=== PATIENT | male | born 1980 | race Caucasian/White ===

== ENCOUNTER 2023-06-17 18:03 | Emergency (ER) | payer MEDICAID, SELFPAY ==
[2023-06-17 18:16] VITALS: BP 226/151; PULSE 104; RESP 18; O2SAT 95; BMI 57.4
--- NOTE | 2023-06-17 18:24 | W.ED.EPISTAX ---
HPI - Epistaxis General: Chief complaint: Epistaxis Stated complaint: nosebleed Time Seen by Provider: 06/17/23 18:24 History of Present Illness: 42-year-old male presents emergency department with complaints of elevated blood pressure and epistaxis. He states that he has had longstanding elevated blood pressure that has been untreated for many years and today it became much worse causing him to have a uncontrolled nosebleed. He states he also has a headache that is a throbbing headache that is a 7 out of 10. He denies neck pain or nuchal rigidity or recent trauma. Associated symptoms: Reports headache(s) Review of Systems General: Reports: 10 or more systems reviewed and unremarkable except in HPI and below ENMT: Reports: epistaxis Neuro: Reports: headache(s) Physical Exam Narrative: EXAM NARRATIVE: Constitutional: the patient appears well nourished and with normal development. Vital signs reviewed as documented. HENMT: Normocephalic, atraumatic. Extermal ears with normal appearance without drainage. Nose with epistaxis left nare, normal appearance. Mucus membranes moist. Neck is supple, No jugular venous distension, trachea is midline, no appreciable carotid bruits. No lymphadenopathy. No meningeal signs. Flexion, extension and lateral rotation is without pain. Eyes: Pupils are equal, round, reactive to light and accommodation. No scleral icterus. Extra-ocular movement are intact. Thorax is symmetrical and with equal rise and fall with respirations. Resp: Lungs are clear to auscultation. No wheezes, rales, crackles or ronchi at present. Cardio: Regular rate and rhythm. Positive S1, S2. No appreciable murmurs, rubs or gallops. GI: Abdominal exam reveals normal bowel sounds to all quadrants. No organomegaly. No obvious palpable masses noted. No hepatomegally appreciated. Soft, nontender to palpation. Extremity: Extremities are with 1+ bilateral lower extremity pitting edema and both femoral and pedal pulses are 2+ and equal bilaterally. Moves all extremities well, sensation in all extremities. Neuro: Alert and oriented x4, person, place, time and situation. Cranial nerves II through XII are grossly intact, there is no focal neurological deficits that I can appreciate at present. Motor strength in the upper and lower extremities are equal and bilateral 5/5. Psych: Cooperative, calm, normal thought process, appropriate judgment. Skin: No lesions, rashes. No gross abnormalities noted. Back: Symmetrical, no obvious deformity, No CVA tenderness Course Vital Signs: Vital signs: Vital Signs Pulse Rate 108 H 06/17/23 19:11 Respiratory Rate 20 H 06/17/23 19:06 Blood Pressure 235/147 06/17/23 19:11 Pulse Oximetry 91 06/17/23 19:11 Oxygen Delivery Me thod Room Air 06/17/23 18:16 MDM - Epistaxis Medical Decision Making Physical exam completed and documented, I will obtain a CBC, CMP, EKG chest x-ray as well as cholesterol and hemoglobin A1c as the patient states he has had significantly elevated blood glucose levels and diabetes runs in his family. He states he has had untreated hypertension for greater than 10 years as he does not have a primary care provider. Lab Data I reviewed the patient's lab results. 06/17/23 19:34 06/17/23 19:34 Radiology Impressions Chest X-Ray 06/17/23 19:19 IMPRESSION: 1. No acute pulmonary findings. 2. Cardiomegaly. Laboratory Results WBC 8.82 10^3/uL (3.29-11.43) 06/17/23 19:34 RBC 5.84 10^6/uL (3.85-5.65) H 06/17/23 19:34 Hgb 15.80 g/dL (11.27-16.99) 06/17/23 19:34 Hct 47.3 % (37-53) 06/17/23 19:34 MCV 81.0 fl (82-101) L 06/17/23 19:34 MCH 27.1 pg (27-33) 06/17/23 19:34 MCHC 33.4 g/dL (30-55) 06/17/23 19:34 RDW 13.7 % (12.1-15.1) 06/17/23 19:34 Plt Count 238 10^3/cmm (157-399) 06/17/23 19:34 MPV 9.1 fL (7.4-10.4) 06/17/23 19:34 Neut % (Auto) 61.7 % 06/17/23 19:34 Lymph % (Auto) 28.0 % 06/17/23 19:34 [place] % (Auto) 6.9 % 06/17/23 19:34 Eos % (Auto) 1.7 % 06/17/23 19:34 Baso % (Auto) 1.1 % 06/17/23 19:34 Neut # (Auto) 5.44 10^3/uL (1.8-7.7) 06/17/23 19:34 Lymph # (Auto) 2.5 10^3/uL (0.8-4.8) 06/17/23 19:34 [place] # (Auto) 0.6 10^3/uL (0.2-0.9) 06/17/23 19:34 Eos # (Auto) 0.2 10^3/uL (0.0-0.8) 06/17/23 19:34 Baso # (Auto) 0.1 10^3/uL (0.0-0.1) 06/17/23 19:34 Nucleated RBC % (auto) 0 % 06/17/23 19:34 Nucleated RBCs # 0.0 /100WBC 06/17/23 19:34 Sodium 140 mmol/L (136-145) 06/17/23 19:34 Potassium 3.2 mmol/L (3.5-5.1) L 06/17/23 19:34 Chloride 103 mmol/L (98-107) 06/17/23 19:34 Carbon Dioxide 26 mmol/L (22-29) 06/17/23 19:34 Anion Gap 14.2 (5-19) 06/17/23 19:34 BUN 16 mg/dL (6-20) 06/17/23 19:34 Creatinine 1.0 mg/dL (0.7-1.2) 06/17/23 19:34 GFR Calculation 82.3 mL/min (90-130) L 06/17/23 19:34 Glucose 213 mg/dL (65-115) H 06/17/23 19:34 Estimat Average Glucose 163 06/17/23 19:34 Calculated Osmolality 298 mOsm/kg (285-295) H 06/17/23 19:34 Calcium 9.1 mg/dL (8.5-10.5) 06/17/23 19:34 Total Bilirubin 0.2 mg/dL (0.15-1.2) 06/17/23 19:34 AST 24 U/L (0-40) 12/17/23 19:34 ALT 35 U/L (0-41) 06/17/23 19:34 Alkaline Phosphatase 122 U/L (40-130) 06/17/23 19:34 Total Protein 6.7 g/dL (6.6-8.7) 06/17/23 19:34 Albumin 3.8 g/dL (3.5-5.2) 06/17/23 19:34 Globulin 2.9 g/dL (1.3-4.6) 06/17/23 19:34 Triglycerides 204 mg/dL (0-150) H 06/17/23 19:34 Cholesterol 164 mg/dL (0-200) 06/17/23 19:34 LDL Cholesterol Direct 108 mg/dL (0-100) H 06/17/23 19:34 HDL Cholesterol 32 mg/dL (60-100) L 06/17/23 19:34 TSH 1.71 uIU/mL (0.27-4.20) 06/17/23 19:34 All radiology interpretation(s) finalized by discharge Discharge Plan Discharge Patient Disposition: Home Clinical Impression: Epistaxis Hypertension Qualifiers: Hypertension type: primary hypertension Qualified Code(s): I10 - Essential (primary) hypertension Condition: Stable Prescriptions: New Norvasc 10 mg tablet 10 mg PO DAILY Qty: 90 1RF clonidine HCl 0.1 mg tablet 0.1 mg PO DAILY Qty: 30 1RF atorvastatin 20 mg tablet 20 mg PO QPM Qty: 90 0RF benazepril-hydrochlorothiazide 20-25 mg tablet 1 tab PO DAILY Qty: 90 1RF Discharge Orders: Discharge ED (Routine); Ordered 06/17/23 Ordered By: Pineda Servin Discharge Diet: Low Salt Discharge Activity: Resume usual activity Patient Instructions: Opioid Safety, Pain Management Activity Restrictions/Additional Instructions: Activity Restrictions/Additional Instructions: Thank you for choosing [facility] for your healthcare needs today. Please realize that you were seen in the Emergency Department and that we are providing you with an emergency medical screening exam and this may not be a complete and all inclusive of all the testing and or medical work-up that you may need to determine your ailment or severity of your illness. It is very important that you follow-up as instructed with your Primary care provider or Specialist for additional evaluation and to discuss your medical treatment plan. You may return to the Emergency Department should you have concerns or if your condition changes or worsens in any way. Coding Level of Care Code ED [employer] Refinisher for Veronica Tavarez
[2023-06-17] MEDS: hyDRALAzine 20 mg/mL INJ 1 mL 10 MG IVP (18:41)
[2023-06-17 19:04] VITALS: BP 219/140
[2023-06-17] MEDS: cloNIDine 0.1 mg Tablet 0.2 MG PO (19:04)
[2023-06-17] MEDS: oxymetazoline 0.05% Nasal Spray 15 mL 2 SPRAY NOSTRIL-B (19:04)
[2023-06-17 19:06] VITALS: BP 219/140; PULSE 109; RESP 20; O2SAT 91
[2023-06-17 19:11] VITALS: BP 235/147; PULSE 108; O2SAT 91
--- NOTE | 2023-06-17 19:19 | ECG_ITS ---
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 Measurements Intervals Bell Rate: 90 P: 48 DE: 133 QRS: -14 QRSD: 101 T: 93 QT: 381 QTc: 467 Interpretive Statements SINUS RHYTHM WITH MARKED SINUS ARRHYTHMIA POSSIBLE LEFT ATRIAL ENLARGEMENT [-0.1mV P-WAVE IN V1/V2] NONSPECIFIC T-WAVE ABNORMALITY No previous ECG available for comparison Electronically Signed On 06-18-2023 15:52:13 [employer]OLDER HELPER by Sowmya Mayers M.D. [id number]
--- NOTE | 2023-06-17 19:19 | XRR_ITS ---
PROCEDURE INFORMATION: Exam: XR Chest Exam date and time: 06/17/2023 7:23 PM Age: 42 years old Clinical indication: Chest pressure; Patient HX: Chest pain; HTN; Nosebleed TECHNIQUE: Imaging protocol: Radiologic exam of the chest. Views: 2 views. COMPARISON: No relevant prior studies available. FINDINGS: Lungs: Unremarkable. No consolidation. Pleural spaces: Unremarkable. No pleural effusion. No pneumothorax. Heart/Mediastinum: Cardiomegaly. Bones/joints: Unremarkable. XR/XR chest 2V* [id number] IMPRESSION: 1. No acute pulmonary findings. 2. Cardiomegaly.
[2023-06-17 19:44] LABS: Basophils # 0.1 10^3/uL (0.0-0.1); Basophils % 1.1 %; Eosinophils # 0.2 10^3/uL (0.0-0.8); Eosinophils % 1.7 %; Hematocrit 47.3 % (37-53); Lymphocytes # 2.5 10^3/uL (0.8-4.8); Mean Corpuscular HGB Conc 33.4 g/dL (30-55); Mean Corpuscular Hemoglobin 27.1 pg (27-33); Mean Platelet Volume 9.1 fL (7.4-10.4); Monocytes # 0.6 10^3/uL (0.2-0.9); Monocytes % 6.9 %; Neutrophils # 5.44 10^3/uL (1.8-7.7); Neutrophils % 61.7 %; Nucleated Red Blood Cells % 0 %; Platelet Count 238 10^3/cmm (157-399); Red Blood Count 5.84 10^6/uL (3.85-5.65); Red Cell Distribution Width 13.7 % (12.1-15.1); White Blood Count 8.82 10^3/uL (3.29-11.43)
[2023-06-17 20:10] LABS: Alanine Aminotransferase 35 U/L (0-41); Albumin Level 3.8 g/dL (3.5-5.2); Alkaline Phosphatase 122 U/L (40-130); Anion Gap 14.2 (5-19); Aspartate Amino Transferase 24 U/L (0-40); Blood Urea Nitrogen 16 mg/dL (6-20); Calcium 9.1 mg/dL (8.5-10.5); Carbon Dioxide 26 mmol/L (22-29); Chloride 103 mmol/L (98-107); Cholesterol 164 mg/dL (0-200); Globulin 2.9 g/dL (1.3-4.6); Glomerular Filtration Rate 82.3 mL/min (90-130); Glucose 213 mg/dL (65-115); HDL Cholesterol 32 mg/dL (60-100); LDL Cholesterol Direct 108 mg/dL (0-100); Osmolality Calculated 298 mOsm/kg (285-295); Potassium 3.2 mmol/L (3.5-5.1); Sodium 140 mmol/L (136-145); Thyroid Stimulating Hormone 1.71 uIU/mL (0.27-4.20); Total Bilirubin 0.2 mg/dL (0.15-1.2); Total Protein 6.7 g/dL (6.6-8.7); Triglycerides 204 mg/dL (0-150)
[2023-06-17] MEDS: labetalol 5 mg/mL SDV 20mL 20 MG IVP (20:24)
[2023-06-17] MEDS: amlodipine 10 mg Tablet PO (21:25)
[2023-06-17] MEDS: hyDRALAzine 20 mg/mL INJ 1 mL IVP (21:25)
[2023-06-17 22:27] VITALS: BP 108/62; PULSE 67; O2SAT 92
[2023-06-17 22:28] LABS: Estmated Average Glucose 163; Hemoglobin A1C 7.3 % (4.0-6.0)
== END 2023-06-17 22:29 | disposition home or self-care (01) ==
PROVIDERS: Emergency Provider Internal Medicine
DX: R04.0 Epistaxis (principal); I11.9 Hypertensive heart disease without heart failure
CPT/HCPCS: 36415; 71046; 80053; 82465; 83036; 83718; 83721; 84443; 84478; 85025; 93005; 96374; 96375; 99285; J0360; J3490